=== PATIENT | female | born 1995 | race African-American/Black ===

== ENCOUNTER → 2022-05-06 | Emergency (ER) | payer OTHER ==
[~2022-05-06] VITALS: Ht 160 cm; Wt 59.4 kg
== END | disposition home or self-care (01) ==
LOC: ER 20:20
DX: O20.9 Hemorrhage in early pregnancy, unspecified (principal); Z3A.00 Weeks of gestation of pregnancy not specified; Z34.90 Encounter for supervision of normal pregnancy, unspecified, unspecified trimester